=== PATIENT | male | born 2000 | race Caucasian/White ===

== ENCOUNTER 2020-10-02 05:11 | Emergency (ER) | payer BC ==
[~2020-10-02] VITALS: Ht 165.1 cm; Wt 83.9 kg
[2020-10-02 05:17] VITALS: BP_SYST 134
[2020-10-02 05:35] VITALS: BP_SYST 134
== END 2020-10-02 05:35 | disposition home or self-care (01) ==
LOC: SED 05:11
DX: J02.9 Acute pharyngitis, unspecified (principal)
CPT/HCPCS: 99281